=== PATIENT | male | born 1955 | race Caucasian/White ===

== ENCOUNTER 2019-05-22 06:09 | Inpatient (IN) | payer OTHER ==
[2019-05-15 08:35] LABS: ABSOLUTE BASOPHILS 0.1 thou/uL (0.0-0.2); ABSOLUTE EOSINOPHILS 0.1 thou/uL (0.0-0.7); ABSOLUTE LYMPHOCYTES 1.6 thou/uL (0.8-5.3); ABSOLUTE MONOCYTES 0.5 thou/uL (0.0-1.2); ABSOLUTE NEUTROPHILS 3.3 thou/uL (1.6-8.1); EOSINOPHILS 2.4 %; HEMATOCRIT 40.8 % (42.0-52.0); LYMPHOCYTES 29.3 %; MCH 31.1 pg (26.0-34.0); MCHC 34.3 g/dL (28.0-37.0); MCV 90.5 fL (80.0-100.0); MONOCYTES 8.5 %; MPV 6.5 fl. (7.2-11.1); NUCLEATED RBCS 0 /100WBC; PLATELET COUNT* 270 thou/uL (150-400); POLYS 58.8 %; RBC 4.51 mil/uL (4.50-6.00); RDW-CV 13.1 % (10.5-14.5); WBC 5.6 thou/uL (4.0-11.0)
[2019-05-15 08:46] LABS: APTT 27.1 Seconds (25.0-31.3)
[2019-05-15 09:12] LABS: ALBUMIN 4.2 g/dL (3.4-5.0); CREATININE 0.9 mg/dL (0.6-1.3); POTASSIUM 4.1 mmol/L (3.5-5.1); TOTAL BILIRUBIN 0.4 mg/dL (<0.1-1.0); TOTAL PROTEIN 8.1 g/dL (6.4-8.2)
[2019-05-15 10:16] LABS: ESR (SEDRATE) 20 mm/hr (0-20)
--- NOTE | 2019-05-15 10:30 | EKG ---
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
[2019-05-16 02:10] LABS: GLYCOHEMOGLOBIN (HGB A1C) 6.7 % (4.8-5.6)
[~2019-05-22] VITALS: Ht 180.3 cm; Wt 114.8 kg
[~2019-05-22 06:09] MED LIST: ADDERALL XR 1515 MG PO; ASPIR 8181 M1 PO; BARIATRIC MV-I1 EACH PO; CLARITIN10 MG PO; CLONAZEPAM 0.50.5 M1 PO; FLOMAX0.4 MG PO; GABAPENTIN600 M1 PO; HALCION0.25 MG PO; INVOKANA300 MG PO; MELATONIN5 M1 PO; MELOXICAM15 MG PO; METFORMIN HCL500 M3 PO; MS CONTIN 30 MG30 MG PO; OMEPRAZOLE 20 M20 M1 PO; TRAMADOL 50 MG50 MG PO; WELLBUTRIN XL300 MG PO
[2019-05-22 07:00] VITALS: BP 130/79
[2019-05-22 13:02] VITALS: BP 145/80
[2019-05-22 16:00] VITALS: BP 146/84
[2019-05-22 19:30] VITALS: BP 119/85
[2019-05-23] VITALS: BP 112/55
[2019-05-23 03:39] VITALS: BP 156/84
[2019-05-23 04:25] LABS: HEMATOCRIT 35.4 % (42.0-52.0); HEMOGLOBIN 12.3 gm/dL (14.0-18.0)
[2019-05-23 07:50] VITALS: BP 141/81
[2019-05-23 09:36] LABS: ABSOLUTE BASOPHILS 0.1 thou/uL (0.0-0.2); ABSOLUTE LYMPHOCYTES 1.7 thou/uL (0.8-5.3); ABSOLUTE MONOCYTES 1.2 thou/uL (0.0-1.2); ABSOLUTE NEUTROPHILS 7.7 thou/uL (1.6-8.1); BASOPHILS 0.6 %; EOSINOPHILS 0.2 %; LYMPHOCYTES 15.5 %; MCH 31.3 pg (26.0-34.0); MCHC 34.2 g/dL (28.0-37.0); MCV 91.4 fL (80.0-100.0); MONOCYTES 11.4 %; MPV 7.7 fl. (7.2-11.1); NUCLEATED RBCS 0 /100WBC; PLATELET COUNT* 317 thou/uL (150-400); POLYS 72.3 %; RBC 3.93 mil/uL (4.50-6.00); RDW-CV 13.2 % (10.5-14.5); WBC 10.7 thou/uL (4.0-11.0)
[2019-05-23 09:44] LABS: ALBUMIN 3.6 g/dL (3.4-5.0); CALCIUM 8.8 mg/dL (8.5-10.1); CREATININE 0.9 mg/dL (0.6-1.3); POTASSIUM 4.3 mmol/L (3.5-5.1); TOTAL BILIRUBIN 0.7 mg/dL (<0.1-1.0); TOTAL PROTEIN 6.5 g/dL (6.4-8.2)
--- NOTE | 2019-05-23 11:29 | OP ---
[address] [address] OPERATIVE REPORT Name: NELLIE MAIN Room: [address] IN .R.#: [id number] Admission: 05/22/19 Attend Phys: Yoandy Rabago Discharge: Date of : 55 Report #: [id number] THIS REPORT FOR: //name// CC: Amol Doan DICTATED BY: Nellie Norton DO DATE OF SERVICE: 05/22/2019 PREOPERATIVE DIAGNOSIS: Advanced osteoarthritis of the left hip. POSTOPERATIVE DIAGNOSIS: Advanced osteoarthritis of the left hip. PROCEDURE PERFORMED: Left total hip arthroplasty. SURGEON: Amol Molina DO [employer] REPAIRER: Neelam Wyatt PA-C; Nellie Riley DO IMPLANTS USED: 1. Biomet total hip system with a 58 mm G7 shell. 2. A 40 mm high wall poly. 3. A size-15 Taperloc lateralized stem. 4. A 40 mm ceramic head with a -3 neck. ANESTHESIA: General and local. ESTIMATED BLOOD LOSS: 275 mL. SPECIMENS: None. COMPLICATIONS: None. FINDINGS: The patient had significant eburnated bone and osteophytic lipping of both the femoral head and acetabular rim. INDICATIONS FOR PROCEDURE: The patient is a very pleasant 63-year-old male who has been dealing with worsening left hip pain for many years now. He presented to our clinic. We took x-rays and demonstrated significant joint space narrowing, osteophytic changes, sclerosis and cystic changes. He has attempted conservative treatment. He is on chronic opioid medications for his pain and his left hip pain is now causing and becoming more sedentary. 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 We discussed risks, benefits, complications, alternatives and [address] [address] OPERATIVE REPORT Name: NELLIE MAIN Room: [address] [place] [facility].#: [id number] Admission: 05/22/19 Attend Phys: Yoandy Rabago Discharge: Date of : 55 Report #: [id number] indications with him. He voiced understanding and wished to proceed. DESCRIPTION OF PROCEDURE: The patient was seen in the preoperative holding area. Correct operative site was marked. Verbal and written consents were obtained. He was transferred to the operative suite and placed supine on the table, given benefit of general anesthesia by the anesthesia team. He was secured to the [place] bed in normal fashion and the left lower extremity was then prepped and draped in normal sterile fashion. Timeout was performed. All those in attendance were in agreement with correct operative site, procedure to be performed. A 10-blade scalpel was used to make an incision for a standard anterior approach. Electrocautery was used to get down to the tensor fascia lucas and once we identified the perforating vessel, we incised through the fascia with a new 10-blade scalpel. Retraction blunt dissection was taken down to the level of the anterior capsule. The circumflex vessels were cauterized utilizing the Aquamantys and electrocautery. We then reflected the indirect rectus off the anterior capsule and used the Aquamantys to cauterize the anterior capsule of the hip. We placed our , VII and IX retractors in the appropriate positions and then a capsulotomy was performed utilizing electrocautery. We then visualized the neck and utilizing the oscillating saw performed our neck cut at the appropriate level and the neck and head were removed and measured on the back table. We then sequentially reamed up to a final size 58 mm shell and used fluoroscopy to verify both positioning and depth of our reamer. Once we were happy with this position, our final 58 mm G7 shell was malleted into place, found to have excellent press fit fixation. We then used two screws through the acetabular shell one 30 mm, one 25 after these were drilled, measured to appropriate depth. The center manhole cover was then screwed in place and secured appropriately and our final high wall poly for a 40 mm head was malleted into place and found to be secured within the shell. A thorough irrigation was used throughout. We then externally rotated the femur and placing our #5 and #8 retractors, we were able to visualize the proximal aspect of the femur and femoral cut. At this point, the hip was extended and adducted and soft tissue releases were performed as needed in order to better visualize to gain access to the proximal femoral canal. We then used box osteotome followed by the rattail rasp and then broached appropriately to our final size 15 Taperloc stem. This was then left in place. A lateralized neck and a -3 ball were then placed and a trial reduction was performed and x-ray was used intraoperatively with the fluoroscopy to verify both positioning of our implants and leg lengths. We then dislocated these trial implants. These trial implants were removed. Thorough irrigation was placed in followed by vancomycin powder and our final size 15 stem was malleted into place and secured appropriately. A -3 ceramic head with a 40-mm head was then malleted into place, engaging the [place] taper and then final [address] [address] OPERATIVE REPORT Name: NELLIE MAIN Room: [address] [place] [facility]#: [id number] Admission: 05/22/19 Attend Phys: Yoandy Rabago Discharge: Date of : 55 Report #: [id number] reduction was performed. Local anesthetic was injected pericapsularly and throughout our operative field and a sterile irrigation was used through the joint. All needle and instruments were removed. The fascia was reapproximated with #1 barbed suture and the skin was closed utilizing 2-0 Vicryl in subcuticular inverted fashion followed by running subcuticular 3-0 Stratafix and Exofin skin glue was placed over the incision. Sterile Mepilex dressing was placed. The patient was awoken from anesthesia and transferred to PACU in stable condition. All needle and scrub counts were correct at the end of the case x 2. I attest Dr. Molina was present through all critical decision making aspects of the case. <ELECTRONICALLY SIGNED> By: Juan Carlos Garcia DO 05/23/19 1129 1058 [id number] Molina DO /sharath
[2019-05-23 13:39] VITALS: BP 141/81
[2019-05-23 15:55] VITALS: BP 143/68
[2019-05-23 19:26] VITALS: BP 127/70
[2019-05-24] VITALS: BP 137/76
[2019-05-24 04:03] VITALS: BP 110/59
[2019-05-24 04:32] LABS: HEMATOCRIT 33.5 % (42.0-52.0); HEMOGLOBIN 11.6 gm/dL (14.0-18.0)
[2019-05-24 08:10] VITALS: BP 137/69
[2019-05-24 11:39] VITALS: BP 141/81
[2019-05-24 11:40] VITALS: BP 141/81
[2019-05-24 12:31] VITALS: BP 141/81
== END 2019-05-24 12:45 | disposition home or self-care (01) | DRG 470 ==
LOC: M.TBA 06:09 → M.PRE 08:45 → M.SUR 09:45 → EDSTATUS 09:46 → M.PRE 09:47 → M.TBA 10:47 → M.ORTHSURG 10:47 → M.PRE 14:51 → M.3W 05-23 17:30
PROVIDERS: Orthopaedic Surgery; ADMIT Internal Medicine
PROC: 0SRB03A Replacement of Left Hip Joint with Ceramic Synthetic Substitute, Uncemented, Open Approach (ICD-10-PCS; principal; 2019-05-22)
DX: M16.12 Unilateral primary osteoarthritis, left hip (principal); E11.42 Type 2 diabetes mellitus with diabetic polyneuropathy; F32.9 Major depressive disorder, single episode, unspecified; Z96.653 Presence of artificial knee joint, bilateral; K21.9 Gastro-esophageal reflux disease without esophagitis; G89.29 Other chronic pain; R53.82 Chronic fatigue, unspecified; J30.2 Other seasonal allergic rhinitis; G47.00 Insomnia, unspecified; F41.9 Anxiety disorder, unspecified; Z96.1 Presence of intraocular lens; Z98.84 Bariatric surgery status; Z79.84 Long term (current) use of oral hypoglycemic drugs; Z79.82 Long term (current) use of aspirin; Z79.899 Other long term (current) drug therapy; Z88.0 Allergy status to penicillin; Z98.49 Cataract extraction status, unspecified eye; Z87.442 Personal history of urinary calculi; Z80.1 Family history of malignant neoplasm of trachea, bronchus and lung